=== PATIENT | male | born 1995 | race Caucasian/White ===

== ENCOUNTER 2017-07-28 21:51 | Emergency (ER) | payer MEDICAID, OTHER ==
[2017-07-28] MEDS ORDERED: ONDANSETRON 4 MG/2 ML VIAL IVP ONE (22:12)
[2017-07-28] MEDS ORDERED: KETOROLAC 30 MG/1 ML SDV IVP ONE (22:12)
[2017-07-28] MEDS ORDERED: NS 1,000 ML IV ONE (22:12)
[2017-07-28] MEDS ORDERED: ONDANSETRON 4 MG/2 ML VIAL ONE (22:14)
[2017-07-28] MEDS ORDERED: KETOROLAC 15 MG/1 ML SDV ONE (22:14)
--- NOTE | 2017-07-28 22:16 | EDPHY ---
H & P Source: Patient Exam Limitations: No limitations <Nereida Starr - Last Filed: 07/29/17 00:30> Stated Complaint: c/o feeling shaky, vomited x 1. denies alcohol/drug/marijuana use Source: Patient - Personal History Current Tetanus/Diphtheria Vaccine: No Current Tetanus Diphtheria and Acellular Pertussis (TDAP): No - Medical/Surgical History Hx Asthma: No Hx Chronic Respiratory Disease: No Hx Diabetes: No Hx Cardiac Disease: No Hx Renal Disease: No Hx Cirrhosis: No Hx Alcoholism: No Hx HIV/AIDS: No Hx Splenectomy or Spleen Trauma: No Other PMH: denies - Social History Smoking Status: Never smoked <AngelHolly - Last Filed: 08/02/17 15:31> Time Seen by Provider: 07/28/17 22:02 HPI/ROS: CHIEF COMPLAINT: Vomiting and shaky History by patient HISTORY OF PRESENT ILLNESS: 23-year-old man with no past medical history presents complaining of feeling unwell but having a difficult time explaining his symptoms. Patient states that he was feeling well earlier today. He ate a hamburger shortly after that vomited and had the urgent feeling to have a bowel movement. He had a normal bowel movement without diarrhea. That was the 2nd time today. He denies any fever chills. He denies any cough, runny nose or sore throat but does state that he has a funny feeling in his felt his throat that he needs to keep swallowing or gulping. He does state it feels a little bit like when he has had food poisoning in the past. He denies any back pain. He denies any dysuria, urgency frequency or hematuria. He denies any testicular pain. He feels shaky all over. He denies any alcohol, marijuana or street drug use. He is currently unemployed and lives at home with his mother. REVIEW OF SYSTEMS: As in HPI, and all other systems reviewed and are negative (Holly Ortiz) - Physical Exam Exam: General Appearance: Alert, anxious and uncomfortable appearing. Eyes: Pupils equal and round, no pallor or injection. Mouth: Mucous membranes moist. Respiratory: Normal, effort, lungs are clear to auscultation. No wheezes, rales or rhonchi. Cardiovascular: Regular rate and rhythm. S1, S2, no murmurs, gallops or rubs appreciated Gastrointestinal: bowel sounds present, Abdomen is soft and mildly distended and tender in the right upper and right lower quadrant, no masses Back: Mild bilateral CVA tenderness, no bony tenderness Neurological: Awake, alert and oriented x 3, no pronator drift, normal gait, no pronator drift Skin: Warm and dry, no rashes. Musculoskeletal: No deformities or tenderness. Extremities: full range of motion, no edema Psychiatric: Patient has normal affect, there is no agitation. (Holly Ortiz) Constitutional: Initial Vital Signs Temperature (C) 36.7 C 07/28/17 22:03 Heart Rate 102 H 07/28/17 22:03 Respiratory Rate 16 07/28/17 22:03 Blood Pressure 152/83 H 07/28/17 22:03 O2 Sat (%) 97 07/28/17 22:03 O2 Delivery Mode Room Air Allergies/Adverse Reactions: No Known Allergies Allergy (Unverified 07/28/17 22:01) Home Medications: Medication Instructions Recorded Famotidine [Pepcid 20 MG (*)] 20 mg PO DAILY #3 tab 07/30/17 diphenhydrAMINE [Benadryl 25 MG 25 mg PO BID #6 tab 07/30/17 (*)] Medical Decision Making - Diagnostics Imaging: Discussed imaging studies w/ call worker Radiologist <Nerieda Starr - Last Filed: 07/29/17 00:30> <Holly Ortiz - Last Filed: 08/02/17 15:31> ED Course/Re-evaluation: The patient was seen and examined. Vital signs and lab data reviewed. The patient signed out to me awaiting results of CT scan of the abdomen and pelvis. The CT was negative except for mesenteric adenitis. A rapid strep test was performed due to the patient feeling some discomfort with swallowing and this was negative. Patient was given a take-home pack of Zofran and referred to [facility] a for follow-up as needed. He should return to the emergency room if symptoms change or worsen as discussed. (Nereida Starr) 22-year-old man presents complaining of feeling shaky, nauseated and vomiting x1 with right-sided abdominal tenderness. Labs notable for elevated white blood cell count. Patient was given IV fluids, Zofran and ketorolac after which he was feeling better but on re-evaluation he continued to wince when palpating the right lower quadrant although he said that "it tickles and that does not feel good "but did not have this reaction to palpation of other parts of his abdomen. I am concerned about acute appendicitis and therefore CT scan of the abdomen and pelvis has been ordered. I will transfer care to Dr. Valle is pending results of the scan. (Holly Ortiz) - Data Points Laboratory Results: Laboratory Results 07/28/17 22:29 07/28/17 22:29 Medications Given: Discontinued Medications Sodium Chloride (Ns) 1,000 mls @ 0 mls/hr IV EDNOW ONE; Wide Open PRN Reason: Protocol Stop: 07/28/17 22:13 Last Admin: 07/28/17 22:25 Dose: 1,000 mls Ketorolac Tromethamine (Toradol) 15 mg IVP EDNOW ONE Stop: 07/28/17 22:13 Last Admin: 07/28/17 22:36 Dose: Not Given Ketorolac Tromethamine (Toradol) 15 mg IVP ONCE ONE Stop: 07/28/17 22:22 Last Admin: 07/28/17 22:25 Dose: 15 mg Ondansetron HCl (Zofran) 4 mg IVP EDNOW ONE Stop: 07/28/17 22:13 Last Admin: 07/28/17 22:25 Dose: 4 mg Ondansetron HCl (Zofran Odt 4 Mg Prepack#2) 1 btl TAKEHOME EDNOW ONE Stop: 07/29/17 00:30 Last Admin: 07/29/17 00:33 Dose: 1 btl Departure <Nereida Starr - Last Filed: 07/29/17 00:30> <Holly Ortiz - Last Filed: 08/02/17 15:31> - Departure Disposition: Home, Routine, Self-Care Clinical Impression: Abdominal pain, Mesenteric adenitis Condition: Good Instructions: Ondansetron (By mouth), Acute Abdominal Pain (ED), Mesenteric Adenitis (ED) Additional Instructions: Follow up with your primary care provider as needed. Return to the ER if symptoms change or worsen as discussed. Referrals: NONE *PRIMARY CARE P,. [Primary Care Provider] - As per Instructions Ariela RAMAN [Clinic] - As per Instructions
[2017-07-28] MEDS ORDERED: KETOROLAC 15 MG/1 ML SDV IVP ONE (22:21)
[2017-07-28 22:42] LABS: PLATELET COUNT 312 10^3/uL (150-400)
[2017-07-28] MEDS ORDERED: IOPAMIDOL (ISOVUE-300) 100 ML BTL ONE (23:13)
[2017-07-28 23:39] VITALS: BP 136/77; TEMP 98.6
[2017-07-29] MEDS ORDERED: ONDANSETRON 4MG PREPACK#2 BTL TAKEHOME ONE (00:29)
[2017-07-29 00:39] VITALS: PULSE 93; RESP 16; O2SAT 96
== END 2017-07-29 00:39 | disposition home or self-care (01) ==
LOC: CED 21:51
DX: I88.0 Nonspecific mesenteric lymphadenitis (principal); E86.9 Volume depletion, unspecified
CPT/HCPCS: 74177-PO; 80048-PO; 80076-PO; 81003-PO; 81015-PO; 83690-PO; 85025-PO; 87880-PO; 96374; J1885; J2405; Q9967

== ENCOUNTER 2017-07-30 14:14 | Emergency (ER) | payer MEDICAID ==
[2017-07-30 14:26] VITALS: RESP 18
[2017-07-30] MEDS ORDERED: NS 1,000 ML IV ONE (14:38)
[2017-07-30] MEDS ORDERED: FAMOTIDINE 20 MG/2 ML SDV IVP ONE (14:38)
--- NOTE | 2017-07-30 14:43 | CPEKG ---
Heart Rate: 89 RR Interval: 674 P-R Interval: 152 QRSD Interval: 94 QT Interval: 352 QTC Interval: 429 P Trail: 46 Q[address] Trail: [address]: 29 EKG Severity - NORMAL ECG - EKG Impression: SINUS RHYTHM Electronically Signed By: Arya Mark 02-Aug-2017 12:07:13
[2017-07-30 14:58] LABS: PLATELET COUNT 318 10^3/uL (150-400)
[2017-07-30] MEDS ORDERED: LORazepam 2 MG/ML INJ IVP ONE (15:05)
--- NOTE | 2017-07-30 15:07 | EDPHY ---
H & P Smoking Status: Never smoked Time Seen by Provider: 07/30/17 14:39 HPI/ROS: 22-year-old male presents complaining of rapid heartbeat chest pain upper abdominal pain. He was seen here a few days ago for vomiting and some mild abdominal pain at that time he had a CT abdomen which showed mesenteric adenitis. He denies any drug ingestion, or new medications though he does state he tried Tums. Review of systems As per HPI General no fever no chills no weakness HEENT no eye pain no eye discharge. No eye redness, no sore throat Respiratory no cough, no shortness of breath Cardiac positive chest pain, no peripheral edema, positive palpitations GI positive abdominal pain, no diarrhea, no constipation, no nausea, no vomiting no flank pain, no hematuria, no dysuria Musculoskeletal no myalgias, no joint pain Heme no easy bruising, no easy bleeding Endo no polyuria, no polydipsia Skin positive rashes, no pruritus Neuro no syncope, no dizziness, no headaches Psych is no suicidal ideation, no homicidal ideation (Kay Yu B) Past Medical/Surgical History: Recent CT scan showing mesenteric adenitis (Kay Yu B) Social History: Denies drug, alcohol or tobacco use (Kay Yu B) Physical Exam: 22-year-old male alert and oriented, appears slightly anxious, twitchy, with blotchy erythematous rash to upper chest and upper arms and face HEENT atraumatic normocephalic, extraocular muscles intact, anicteric Oropharynx negative for erythema negative exudate, tolerating her own secretions Neck supple no meningismus Lungs clear to auscultation bilaterally Heart regular rate and rhythm without murmur rub or gallop Abdomen nondistended normoactive bowel sounds , mild epigastric tenderness no guarding no rebound Back no CVA tenderness, no step-offs, no spinal tenderness Extremities no cyanosis clubbing or edema Neuro alert and oriented, no focal deficits (Kay Yu B) Constitutional: Initial Vital Signs Temperature (C) 37.2 C 07/30/17 14:24 Heart Rate 85 07/30/17 14:24 Respiratory Rate 18 07/30/17 14:24 Blood Pressure 157/96 H 07/30/17 14:24 O2 Sat (%) 98 07/30/17 14:24 O2 Delivery Mode Room Air Allergies/Adverse Reactions: No Known Allergies Allergy (Unverified 07/28/17 22:01) Home Medications: Medication Instructions Recorded Famotidine [Pepcid 20 MG (*)] 20 mg PO DAILY #3 tab 07/30/17 diphenhydrAMINE [Benadryl 25 MG 25 mg PO BID #6 tab 07/30/17 (*)] Medical Decision Making ED Course/Re-evaluation: Patient seen and evaluated for feelings of a "racing heart ", chest pain, blotchy rash. EKG-normal sinus rhythm Labs pending Patient initially given 1 L IV normal saline, diphenhydramine 50 mg IV push for the blanching rash, as well as famotidine 20 mg IV push. Differential diagnosis considered but not limited to: Acute gastritis, viral syndrome, influenza, pneumonia, rash-dermatitis, allergic reaction, viral exanthem Metabolic abnormality, toxin Rapid Influenza negative Impression/plan Palpitations, unclear etiology Erythematous blotchy rash-unclear etiology Labs pending Chest x-ray pending Patient endorsed to oncoming doctor Dr. Ewing ([facility]) 1521: Patient was signed over to me at 3:00 p.m. shift change. I have seen and evaluated the patient. Patient resting comfortably. Intermittent twitching. Additionally he blotchy erythematous rash on his chest. Somewhat improving with Benadryl. Patient states he was here with heart racing, chest discomfort epigastric abdominal pain. Denies lower abdominal pain denies vomiting or fever. Workup so far reviewed. Blood work is reassuring. His white count is down from last ER visit. Electrolytes appropriate. CK unremarkable troponin is pending. Patient going to chest x-ray at this time. I did order him 0.5 mg IV Ativan as he does tell me he feels anxious and has had some twitching. See if this improves him. Additionally he got Benadryl and Pepcid for this erythematous chest blotchy rash. Will re-evaluate. Additionally recheck temperature. 1616: Re-evaluation at this time this patient is feeling much better. His erythematous blotchy rash on his chest has resolved after Benadryl Pepcid. He feels well. The intermittent shaking episodes have resolved. His vital signs have been stable. No acute distress. Resting comfortably. EKG interpretation by me on record in [employer] system. Impression this is a repeat EKG time of EKG 1623. Sinus rhythm rate of 73. Unremarkable EKG no signs of cardiac arrhythmia. No signs of ischemia. Intervals are appropriate. D-dimer noted to be negative. Patient is feeling much better. I building go home. Unclear if he He had some type of allergic reaction. Will place on Benadryl and Pepcid for the next 3 days. Return precautions discussed with the patient. Additionally understands return emergency room if develops shortness pain shortness of breath vomiting fever does not feel well. Recommend staying well hydrated the next few days. Return precautions discussed. (Aj Ewing) Other Provider: I received a call from microbiology about a coagulase negative Staph in 07/29 blood culture. This is likely contaminant from the patient's skin lani. He is afebrile at the time is visit. I called the patient. He saw his doctor today. He reports that he is feeling much better. He is not having fevers. He had normal blood pressure and heart rate at his doctor's office. We discussed the results and that it is most likely a contaminant but discussed indications for returning. He feels comfortable with this plan. (Bk Arriaga) - Data Points Laboratory Results: Laboratory Results 07/30/17 14:50 Microbiology Results: MICROBIOLOGY 07/30/17 14:50 Blood Blood Culture - Preliminary Gram Positive Cocci Clusters 07/30/17 14:50 Blood Blood Panel (PCR) - Final Staph Coagulase Negative Medications Given: Discontinued Medications Diphenhydramine HCl (Benadryl Injection) 50 mg IVP EDNOW ONE Stop: 07/30/17 14:39 Last Admin: 07/30/17 14:45 Dose: 50 mg Famotidine (Pepcid) 20 mg IVP EDNOW ONE Stop: 07/30/17 14:39 Last Admin: 07/30/17 14:45 Dose: 20 mg Sodium Chloride (Ns) 1,000 mls @ 0 mls/hr IV ONCE ONE PRN Reason: Wide Open Stop: 07/30/17 14:39 Last Admin: 07/30/17 14:45 Dose: 1,000 mls Lorazepam (Ativan Injection) 0.5 mg IVP EDNOW ONE Stop: 07/30/17 15:06 Last Admin: 07/30/17 15:13 Dose: 0.5 mg Departure - Departure Disposition: Home, Routine, Self-Care Clinical Impression: Palpitations, Allergic reaction Condition: Good Instructions: Heart Palpitations (ED), Allergies (ED) Additional Instructions: 1. Return to the emergency room if he develops further symptoms worsening symptoms questions or concerns. 2. Take Benadryl for the next 3 days. 3. Pepcid for the next 3 days. 4. Return if you have worsening symptoms questions or concerns. 5. Drink lots of fluids stay well-hydrated. 6. Eat appropriate breakfast lunch and dinner. Referrals: NONE *PRIMARY CARE P,. [Primary Care Provider] - As per Instructions Prescriptions: diphenhydrAMINE [Benadryl 25 MG (*)] 25 mg PO BID #6 tab Famotidine [Pepcid 20 MG (*)] 20 mg PO DAILY #3 tab
--- NOTE | 2017-07-30 16:25 | CPEKG ---
Heart Rate: 73 RR Interval: 822 P-R Interval: 152 QRSD Interval: 94 QT Interval: 380 QTC Interval: 419 P [place]: 35 QRS [place]: -1 T Wave [place]: 10 EKG Severity - NORMAL ECG - EKG Impression: SINUS RHYTHM Electronically Signed By: Arya Mark 02-Aug-2017 12:07:01
[2017-07-30 16:38] VITALS: BP 115/62; PULSE 78; TEMP 98; O2SAT 96
== END 2017-07-30 16:36 | disposition home or self-care (01) ==
LOC: CED 14:14
DX: R00.2 Palpitations (principal); T78.40XA Allergy, unspecified, initial encounter; E86.9 Volume depletion, unspecified
CPT/HCPCS: 71046-PO; 80053-PO; 80307-PO; 82550-PO; 83605-PO; 83690-PO; 84443-PO; 84484-PO; 85025-PO; 85378-PO; 87400-PO; 96374; J1200; J2060